=== PATIENT | male | born 1975 | race African-American/Black ===

== ENCOUNTER 2017-07-27 14:51 | Emergency (ER) | payer OTHER ==
[2017-07-27 14:54] VITALS: BP 150/97; BMI 22.9
[2017-07-27] MEDS ORDERED: NS 1000 ML 1,000 ML IV ONE (15:53)
--- NOTE | 2017-07-27 15:53 | DR.GENAD ---
HPI - PCP Primary Care Physician: NFD - Complaint/Symptoms Chief Complaint Doctors Comments: Patient denies fever. Chief Complaint:: PATIENT IS C/O THROWING UP AND HEADACHE SINCE UR. - Source History Provided: Patient - Mode of Arrival Mode of Arrival: Ambulatory - Timing Onset of Chief Complaint: 07/24/17 PMH - PMH Past Medical History: No Past Surgical History: No - Family History History of Family Medical Conditions: Yes Family Medical History: Hypertension - Social History Does patient currently use any type of tobacco product: Yes Have you used tobacco products in the last 12 months: Yes Type of Tobacco Use: Cigarettes Does any household member use tobacco: No Alcohol Use: Occasionally Do you use any recreational Drugs:: Yes (THC) Lives With: Family Lives Where: Home - infectious screening In the last 2 months have you had wt loss of >10#?: NO Have you had fever, night sweats or hemotysis?: No Have you traveled outside the country in the last 6 months?: No Isolation: Standard ROS - Review of Systems Eyes: No Symptoms Reported ENTM: No Symptoms Reported Respiratoy: No Symptoms Reported Cardiovascular: No Symptoms Reported Gastrointestinal/Abdominal: No Symptoms Reported Genitourinary: No Symptoms Reported Neurological: No Symptoms Reported Musculoskeletal: No Symptoms Reported Integumentary: No Symptoms Reported Hematologic/Lymphatic: No Symptoms Reported Endocrine: No Symptoms Reported Psychiatric: No Symptoms Reported All Other Systems: Reviewed and Negative PE - Vital Signs Vitals: Pulse Rate 78 Respiratory Rate 20 Blood Pressure 150/97 O2 Sat by Pulse Oximetry 99 - General Limitations: No Limitations General Appearance: Alert, In No Apparent Distress - Head Head Exam: Normal Inspection, Atraumatic - Eyes Eye exam: Normal Appearance, PERRL, EOMI - ENT ENT Exam: Normal Exam External Ear Exam: Normal External Inspection TM/Canal Exam: Bilateral Normal Nose Exam: Normal Nose Exam Mouth Exam: Normal Inspection Throat Exam: Normal Inspection - Neck Neck Exam: Normal Inspection - Chest Chest Inspection: Normal Inspection - Respiratory Respiratory Exam: Normal Lung Sounds Bilat Respiratory Exam: Bilateral Clear to Auscultation - Cardiovascular Cardiovascular Exam: Regular Rate, Normal Rhythm - Abdominal Exam Abdominal Exam: Normal Inspection, Normal Bowel Sounds Abdominal Tenderness: negative: RUQ, RLQ, LUQ, LLQ, Epigastrium, Suprapubic, Diffuse, Mild, Moderate, Severe, Other - Extremities Extremities Exam: Normal Inspection, Full ROM - Back Back Exam: Normal Inspection, Full ROM - Neurologic Neurological Exam: Alert, Oriented X3, CN II-XII Intact - Psychiatric Psychiatric Exam: Normal Affect, Normal Mood - Skin Skin Exam: Warm, Dry Course - Treatment Treatment: NS, Antiemetic - Reevaluation 1st: Improved ROR - Labs Reviewed Result Diagrams: 07/27/17 15:55 07/27/17 15:55 Laboratory: WBC 12.7 X10^3/uL (3.6-10.0) H 07/27/17 15:55 RBC 4.20 X10^6/uL (4.7-6.0) L 07/27/17 15:55 Hgb 13.6 g/dL (13.5-18.0) 07/27/17 15:55 Hct 39.8 % (42.0-54.0) L 07/27/17 15:55 MCV 94.7 fL (80.0-100.0) 07/27/17 15:55 MCH 32.4 pg (27.0-34.0) 07/27/17 15:55 MCHC 34.2 g/dL (33.0-35.0) 07/27/17 15:55 RDW 14.4 % (11.6-16.5) 07/27/17 15:55 Plt Count 255 X10^3/uL (150.0-450.0) 07/27/17 15:55 MPV 7.6 fL (7.4-11.0) 07/27/17 15:55 Neut % 73.5 % (42.0-75.0) 07/27/17 15:55 Lymph % 17.7 % (21.0-51.0) L 07/27/17 15:55 [place] % 6.7 % (0.0-13.0) 07/27/17 15:55 Eos % 1.5 % (0.9-2.9) 07/27/17 15:55 Baso % 0.6 % (0.2-1.0) 07/27/17 15:55 Neut # 9.3 x10^3/uL (2.2-4.8) H 07/27/17 15:55 Lymph # 2.2 X10^3/uL (1.3-2.9) 07/27/17 15:55 [place] # 0.8 x10^3/uL (0.3-0.8) 07/27/17 15:55 Eos # 0.2 x10^3/uL (0.0-0.2) 07/27/17 15:55 Baso # 0.1 X10^3/uL (0.0-0.1) 07/27/17 15:55 Absolute Nucleated RBC 0.1 /100WBC 07/27/17 15:55 Sodium 139 mmol/L (136-145) 07/27/17 15:55 Corrected Sodium TNP 07/27/17 15:55 Potassium 4.6 mmol/L (3.5-5.1) 07/27/17 15:55 Chloride 106 mmol/L (98-107) 07/27/17 15:55 Carbon Dioxide 28.7 mmol/L (21-32) 07/27/17 15:55 BUN 8 mg/dL (7-18) 07/27/17 15:55 Creatinine 0.89 mg/dL (0.70-1.30) 07/27/17 15:55 Est GFR (MDRD) Af Amer > 60 (>60) 07/27/17 15:55 Est GFR (MDRD) Non-Af > 60 (>60) 07/27/17 15:55 Glucose 87 mg/dL (65-99) 07/27/17 15:55 Calcium 8.8 mg/dL (8.5-10.1) 07/27/17 15:55 - Diagnosis Discharge Problem: Nausea & vomiting Qualifiers: Vomiting type: unspecified Vomiting Intractability: non-intractable Qualified Code(s): R11.2 - Nausea with vomiting, unspecified - Discharge Plan Condition: Stable - Follow ups/Referrals Follow ups/Referrals: NFD,None [Primary Care Provider] - 3 days - Instructions
[2017-07-27] MEDS ORDERED: ZOFRAN INJ 4 MG VIAL IVP ONE (15:54)
[2017-07-27] MEDS ORDERED: ZOFRAN INJ 4 MG VIAL ONE (16:03)
[2017-07-27] MEDS ORDERED: NS 1000 ML 1,000 ML ONE (16:03)
[2017-07-27 16:09] LABS: BASOPHILS # (AUTO) 0.1 X10^3/uL (0.0-0.1); BASOPHILS % (AUTO) 0.6 % (0.2-1.0); EOSINOPHILS # (AUTO) 0.2 x10^3/uL (0.0-0.2); EOSINOPHILS % (AUTO) 1.5 % (0.9-2.9); HEMATOCRIT 39.8 % (42.0-54.0); HEMOGLOBIN 13.6 g/dL (13.5-18.0); LYMPHOCYTES # (AUTO) 2.2 X10^3/uL (1.3-2.9); LYMPHOCYTES % (AUTO) 17.7 % (21.0-51.0); MEAN CORPUSCULAR HEMOGLOBIN 32.4 pg (27.0-34.0); MEAN CORPUSCULAR HGB CONC 34.2 g/dL (33.0-35.0); MEAN CORPUSCULAR VOLUME 94.7 fL (80.0-100.0); MEAN PLATELET VOLUME 7.6 fL (7.4-11.0); MONOCYTES # (AUTO) 0.8 x10^3/uL (0.3-0.8); MONOCYTES % (AUTO) 6.7 % (0.0-13.0); NEUTROPHILS # (AUTO) 9.3 x10^3/uL (2.2-4.8); NEUTROPHILS % (AUTO) 73.5 % (42.0-75.0); PLATELET COUNT 255 X10^3/uL (150.0-450.0); RED CELL DISTRIBUTION WIDTH 14.4 % (11.6-16.5); WHITE BLOOD COUNT 12.7 X10^3/uL (3.6-10.0)
[2017-07-27 16:14] LABS: BLOOD UREA NITROGEN 8 mg/dL (7-18); CALCIUM 8.8 mg/dL (8.5-10.1); CARBON DIOXIDE 28.7 mmol/L (21-32); CHLORIDE 106 mmol/L (98-107); CREATININE 0.89 mg/dL (0.70-1.30); SODIUM 139 mmol/L (136-145); eGFR BLACK RACES > 60 (>60); eGFR NON BLACK RACES > 60 (>60)
== END 2017-07-27 17:04 | disposition home or self-care (01) ==
LOC: ER 15:04
DX: R11.2 Nausea with vomiting, unspecified (principal)
CPT/HCPCS: 36415; 80048; 85025; 96365; 96374; 99282; 99283; A4222; J2405